=== PATIENT | female | born 1990 | race Caucasian/White ===

== ENCOUNTER 2022-09-16 13:30 | Inpatient (IN) | payer OTHER ==
[~2022-09-16] VITALS: Ht 167.6 cm; Wt 84.4 kg
[2022-09-20] MEDS ORDERED: CHILDREN'S ASPI81 MG PO (19:51)
[2022-09-20] MEDS ORDERED: PRENATAL TABLE1 EAC4 PO (19:51)
[2022-09-20] MEDS ORDERED: PEPCID AC20 MG PO (19:51)
[2022-09-21] MEDS ORDERED: HYDROXYCHLOROQ200 MG (16:02)
== END 2022-09-23 12:58 | disposition home or self-care (01) | DRG 807 ==
LOC: OB/GYN 09-20 18:19 → LDR 09-20 18:19 → OB/GYN 09-21 13:25
PROVIDERS: ADMIT Obstetrics & Gynecology Gynecology; ATTEND Obstetrics & Gynecology Gynecology
PROC: 10E0XZZ Delivery of Products of Conception, External Approach (ICD-10-PCS; principal; 2022-09-20)
PROC: 0UQG7ZZ Repair Vagina, Via Natural or Artificial Opening (ICD-10-PCS; 2022-09-20)
PROC: 4A1HXCZ Monitoring of Products of Conception, Cardiac Rate, External Approach (ICD-10-PCS; 2022-09-20)
DX: O70.0 First degree perineal laceration during delivery (principal); Z37.0 Single live birth; Z3A.39 39 weeks gestation of pregnancy; Z20.822 Contact with and (suspected) exposure to COVID-19

== ENCOUNTER 2024-09-11 13:11 | Inpatient (IN) | payer OTHER ==
[~2024-09-11] VITALS: Ht 167.6 cm; Wt 68.9 kg
[~2024-09-11 13:11] MED LIST: CHILDREN'S ASPI81 MG PO; HYDROXYCHLOROQ200 MG; PEPCID AC20 MG PO; PRENATAL TABLE1 EAC4 PO
[2024-09-11 13:50] VITALS: BP 98/58; O2SAT 100
[2024-09-11 16:00] VITALS: BP 91/58
[2024-09-11] MEDS ORDERED: ACETAMINOPHEN 500 MG GEL..CAP PO SCH (20:00)
[2024-09-12 00:31] VITALS: BP 90/58
[2024-09-12 06:13] VITALS: BP 95/59
[2024-09-12 07:57] VITALS: BP 94/58
[2024-09-12] MEDS ORDERED: HYDROXYCHLOROQUINE SULFATE 200 MG TABLET PO SCH (09:00)
[2024-09-12] MEDS ORDERED: PNV,CALCIUM 72/IRON/FOLIC ACID 1 TAB TABLET PO SCH (09:00)
[2024-09-12] MEDS ORDERED: PATIENTS OWN MEDICATION (MEDICAMENTO EN PISO) PO SCH (09:00)
[2024-09-12 10:42] LABS: BASO % 0.1 % (0.1-1.2); EOS # 0.02 (0.04-0.54); EOS % 0.3 % (0.7-7.0); LYMPH % 19.4 % (19.3-53.1); MEAN CORPUSCULAR HEMOGLOBIN 31.3 pg (25.6-32.2); MONO # 0.36 (0.24-0.82); MONO % 5.4 % (4.7-12.5); NEUT # 4.99 (1.56-6.13); NEUT % 74.4 % (34.0-71.1); PLATELET COUNT 200 K/uL (163-369); RED BLOOD COUNT 2.62 M/uL (3.93-5.22); RED CELL DISTRIBUTION WIDTH 13.2 % (11.6-14.4)
[2024-09-12 10:49] LABS: HEMATOCRIT 23.1 % (34.1-44.9); HEMOGLOBIN 8.2 g/dL (11.2-15.7)
[2024-09-12 11:28] LABS: INR 1.01; PARTIAL THROMBOPLASTIN TIME 26.9 SECONDS (22.0-34.0)
[2024-09-12] MEDS ORDERED: PATIENTS OWN MEDICATION (MEDICAMENTO EN PISO) VAG SCH (17:00)
== END 2024-09-12 14:13 | disposition home or self-care (01) | DRG 833 ==
LOC: OB/GYN 13:11
PROVIDERS: Obstetrics & Gynecology Gynecology; ADMIT Obstetrics & Gynecology Maternal & Fetal Medicine; ATTEND Obstetrics & Gynecology Maternal & Fetal Medicine
PROC: 30233N1 Transfusion of Nonautologous Red Blood Cells into Peripheral Vein, Percutaneous Approach (ICD-10-PCS; principal; 2024-09-11)
DX: O99.011 Anemia complicating pregnancy, first trimester (principal); D64.9 Anemia, unspecified; Z3A.11 11 weeks gestation of pregnancy

== ENCOUNTER 2024-09-22 10:15 | Emergency (ER) | payer OTHER ==
[~2024-09-22] VITALS: Ht 167.6 cm; Wt 68.0 kg
[2024-09-22] MEDS ORDERED: 0.9 % SODIUM CHLORIDE 1,000 ML IV SCH (11:00)
[2024-09-22 11:06] LABS: BASO % 0.2 % (0.1-1.2); EOS # 0.04 (0.04-0.54); EOS % 0.5 % (0.7-7.0); HEMATOCRIT 28.4 % (34.1-44.9); LYMPH # 1.29 (1.18-3.74); LYMPH % 15.5 % (19.3-53.1); MEAN CORPUSCULAR HEMOGLOBIN 30.9 pg (25.6-32.2); MONO # 0.46 (0.24-0.82); MONO % 5.5 % (4.7-12.5); NEUT # 6.49 (1.56-6.13); NEUT % 78.1 % (34.0-71.1); PLATELET COUNT 269 K/uL (163-369); RED CELL DISTRIBUTION WIDTH 13.3 % (11.6-14.4)
[2024-09-22 11:09] LABS: HEMOGLOBIN 9.9 g/dL (11.2-15.7)
[2024-09-22 11:55] LABS: URINE APPEARANCE Cloudy; URINE BILIRRUBIN Small (NEGATIVE); URINE BLOOD Large; URINE COLOR Orange; URINE GLUCOSE Negative (NEGATIVE); URINE KETONE Trace (NEGATIVE); URINE LEUKOCYTE Moderate; URINE NITRATE Negative
[2024-09-22 11:58] LABS: URINE BACTERIA 2504.2 uL (0.0-1933); URINE EPITHELIAL CELLS 17.2 uL (0.0-38.8); URINE RBC 4466.9 uL (0.0-20.8); URINE WBC 718.1 uL (0.0-23.2)
[2024-09-22 12:01] LABS: URINE CAST 0.14 uL (0.0-1.40); URINE PROTEIN 100 (NEGATIVE)
== END 2024-09-22 14:20 | disposition home or self-care (01) ==
LOC: ER 10:29
PROVIDERS: Emergency Medicine
DX: O20.9 Hemorrhage in early pregnancy, unspecified (principal); Z3A.12 12 weeks gestation of pregnancy; Z91.012 Allergy to eggs; Z91.011 Allergy to milk products; Z88.2 Allergy status to sulfonamides; Z91.018 Allergy to other foods

== ENCOUNTER 2024-11-14 19:40 | Emergency (ER) | payer OTHER ==
[~2024-11-14] VITALS: Ht 167.6 cm; Wt 68.0 kg
[2024-11-14] MEDS ORDERED: HYDROXYZIN10 MG/5 ML PO (21:00)
[2024-11-14] MEDS ORDERED: ADDERALL 20 MG20 MG PO (21:00)
[2024-11-14 21:58] LABS: BASO % 0.7 % (0.1-1.2); EOS # 0.02 (0.04-0.54); EOS % 0.4 % (0.7-7.0); LYMPH # 1.09 (1.18-3.74); LYMPH % 24.4 % (19.3-53.1); MEAN PLATELET VOLUME 8.80 fl (9.4-12.4); MONO # 0.35 (0.24-0.82); MONO % 7.8 % (4.7-12.5); NEUT # 2.97 (1.56-6.13); NEUT % 66.7 % (34.0-71.1); RED CELL DISTRIBUTION WIDTH 12.1 % (11.6-14.4)
[2024-11-14 22:18] LABS: INR 1.09
[2024-11-14 22:40] LABS: ALT/SGPT 21.0 U/L (12-78); AST/SGOT 17.0 U/L (15-37); BILIRUBIN TOTAL 0.42 mg/dL (0.3-1.2); BUN CREA RATIO 12.0 (7.0-25.0); CREATININE SERUM 0.59 mg/dL (0.55-1.02); GFR 115.99; GLOBULINA 5.0 G/DL (2.4-3.5); GLUCOSE FASTING 91.0 mg/dL (65-100); HCG QUANTITATIVE 5.0 mUI/mL (1-3); OSMOLALITY SERUM 275.0 MOSM/KG (275-295)
== END 2024-11-14 23:32 | disposition home or self-care (01) ==
LOC: ER 19:40
PROVIDERS: General Practice
DX: N93.9 Abnormal uterine and vaginal bleeding, unspecified (principal); M35.00 Sjogren syndrome, unspecified; Z88.2 Allergy status to sulfonamides; Z91.011 Allergy to milk products; Z91.012 Allergy to eggs; Z91.018 Allergy to other foods